=== PATIENT | female | born 1955 | race Caucasian/White ===

== ENCOUNTER 2022-07-10 13:19 | Outpatient (CLI) | payer MEDICARE, SELFPAY ==
--- NOTE | 2022-07-10 14:17 | ECG_ITS ---
Measurements Intervals [place] Rate: 78 P: 63 MA: 183 QRS: 42 QRSD: 94 T: 63 QT: 376 QTc: 431 Interpretive Statements BASELINE ARTIFACT/POOR ECG QUALITY SINUS RHYTHM POOR R-WAVE PROGRESSION ABNORMAL ECG WARNING: DATA QUALITY MAY AFFECT INTERPRETATION NO PREVIOUS ECG AVAILABLE FOR COMPARISON Electronically Signed On 07-10-2022 15:44:08 CDT by Harvinder Barreto M.D.
[2022-07-10 14:37] LABS: Hematocrit 40.5 % (37.0-47.0); Hemoglobin 13.5 g/dL (12.0-15.0); Mean Corpuscular HGB Conc 33.3 g/dl (32-36); Mean Corpuscular Hemoglobin 30.3 pg (26-34); Mean Corpuscular Volume 90.8 fl (80-100); Platelet Count Result 372 k/mm3 (150-375); Red Blood Count 4.46 M/mm3 (4.2-5.4); Red Cell Distribution Width 13.3 % (11.5-14.5); White Blood Count 7.8 K/mm3 (4.5-10.0)
[2022-07-10 14:45] LABS: Anion Gap 6 mmol/L (8-16); Blood Urea Nitrogen 16 mg/dL (7-17); Calcium 10.2 mg/dL (8.4-10.2); Carbon Dioxide 31 mmol/L (22-30); Chloride 105 mmol/L (98-107); Estimated Glomerular Filt Rate > 60; Glucose 99 mg/dL (65-110); Potassium 4.4 mmol/L (3.4-5.0); Sodium 142 mmol/L (137-145)
[2022-07-10 14:57] LABS: Prothrombin Time 12.8 Seconds (11.1-14.7)
[2022-07-10 14:58] LABS: Partial Thromboplastin Time 33.8 SECONDS (22.3-36.8)
== END 2022-07-10 13:20 | disposition home or self-care (01) ==
PROVIDERS: PCP Internal Medicine; Visit Provider Neurological Surgery
DX: M48.062 Spinal stenosis, lumbar region with neurogenic claudication (principal); Z01.818 Encounter for other preprocedural examination; Z79.1 Long term (current) use of non-steroidal anti-inflammatories (NSAID); R94.31 Abnormal electrocardiogram [ECG] [EKG]
CPT/HCPCS: 36415; 80048; 85027; 85610; 85730; 86850; 86900; 86901; 93005

== ENCOUNTER 2022-07-15 01:17 | Day surgery (SDC) | payer MEDICARE, SELFPAY ==
[2022-07-06 11:05] VITALS: BMI 23.1
--- NOTE | 2022-07-06 11:09 | PC.NURSE ---
Report to the Outpatient Waiting Room, entrance under the green pavilion located off [facility], at time 6:00 on date 07/15/22. Planned Procedure Time: 7:30. Time changes happen often and if your time is changed the preop area will call you the afternoon before. - You and your visitor will be asked to self-screen and do not enter if you have any COVID symptoms. - A mask is optional within the hospital at this time. Patients may have clear liquids (water, carbonated beverages, clear teas, apple juice) until 3 hours prior to surgery with a maximum of 20 ounces. - No food from midnight until time of surgery Take the following medications with a SIP of water the morning of surgery: ALPRAZOLAM IF NEEDED, ARIPIPRAZOLE, BUPROPION, CARVEDILOL, GABAPENTIN DO NOT STOP ANY OF YOUR OTHER PRESCRIPTION MEDICATIONS PRIOR TO SURGERY EXCEPT THE FOLLOWING Medications to discontinue per physician: VITAMINS/SUPPLEMENTS Date to take last dose: 07/11/22 Please no make-up, nail [place] citizen, hairspray, perfume, deodorant, or body powder the day of surgery. No jewelry (including any body piercings) or valuables the day of surgery, leave them at home. Please take a shower or bath the night before, or the morning of, surgery with an antibacterial soap. Wear comfortable, loose fitting clothing. - Jewelry must be removed prior to entering the operating room. Rings and piercings that are not removed may be cut off. - The hospital will not accept responsibility for valuables. - Please leave all valuables, including medications, at home the day of surgery. If you are going home after surgery, a licensed tower truck driver must drive you home. - NO public transportation without another adult if you receive anesthesia. - We recommend that an adult stay with you for 24 hours following discharge. - We also recommend that you do not drive, make important decision, drink alcoholic beverages, or take any drugs that were not prescribed by your health care provider for at least 24 hours after your discharge time. Follow any additional instructions given to you from your surgeon. If you or anyone in your household have experienced Covid symptoms in the past week, please notify your surgeon or the nurse liaison at the phone number below for possible testing. Telephone instructions given to PT - FREDERIC GILLESPIE and asked if any additional questions and then verbalized understanding. Patient advised to call surgeon office or pre surgery nurse liaison [phone] if any additional questions.
[2022-07-15] VITALS (16 sets, daily range): BP systolic 128–176; BP diastolic 60–78; PULSE 73–93; RESP 12–20; TEMP 36.1–37; O2SAT 92–100; BMI 23.2
--- NOTE | ~2022-07-15 | XR_ITS ---
EXAMINATION: XR fluoroscopy no charge DATE: 07/15/2022 10:03 INDICATION: Lumbar laminectomy TECHNIQUE: Single lateral fluoroscopic images of the lumbar spine was obtained during procedure perfo rmed by Dr. Tenorio. Radiologist was not present for the imaging or procedure. The amount of fluorosc opy time used during this procedure was 0.1 minutes. COMPARISON: None. FINDINGS: Tip of a metallic probe projects posterior to the L4 spinous process. There is moderate the visualize d lumbar spondylosis. IMPRESSION: 1. Fluoroscopy utilized during reported lumbar laminectomy. See procedure note for further detail. Reviewed, dictated and finalized at location A.
[2022-07-15] MEDS: LACTATED RINGERS 1,000 ML 30 ML IV CONT (06:30)
--- NOTE | 2022-07-15 06:41 | WPDANESEPPF ---
Anes - Initial Pre Proc Eval Procedure: Operation Date: 07/15/22 07:30 Proposed Procedures p L2-5 Lumbar Laminectomy - Batool Tenorio MD Date/Time: 07/15/22 06:41 Surgeon: Batool Tenorio MD Pre Op Diagnosis: lumbar stenosis with neurogenic claudication Patient Data Age: 67 Gender: F Height: 1.47 m Weight: 50.5 kg Allergies Allergy/AdvReac Type Severity Reaction Status Date / Time No Known Allergies Allergy Verified 07/15/22 06:07 Home Medications Medication Instructions Recorded Confirmed Type alendronate 70 mg tablet 70 mg PO WEEKLY 06/11/22 07/15/22 History alprazolam 0.25 mg tablet 0.25 mg PO BID 06/11/22 07/15/22 History amlodipine 10 mg-benazepril 20 mg 1 cap PO DAILY 06/11/22 07/15/22 History capsule aripiprazole 5 mg tablet 5 mg PO DAILY 06/11/22 07/15/22 History atorvastatin 20 mg tablet 20 mg PO DAILY 06/11/22 07/15/22 History bupropion HCl 300 mg 24 hr tablet, 300 mg PO QAM 06/11/22 07/15/22 History extended release carvedilol 25 mg tablet 25 mg PO Q12H 06/11/22 07/15/22 History gabapentin 600 mg tablet 600 mg PO TID 06/11/22 07/15/22 History potassium chloride 20 mEq 20 meq PO DAILY 06/11/22 07/15/22 History tablet,extended release calcium carbonate 600 mg-vitamin 1 tablet PO DAILY 07/06/22 07/15/22 History D3 5 mcg (200 unit) tablet Patient hx anesthesia problems: none Family hx anesthesia problems: none Results Review: All pre-operative results and documents have been reviewed as part of the pre-operative evaluation. [facility] Past Medical History Medical History (Updated 07/15/22 @ 06:41 by Ludin Barba MD) Anxiety HTN (hypertension) Hyperlipidemia Osteoporosis Surgical History Surgical History (Updated 07/15/22 @ 06:42 by Ludin Barba MD) H/O lymph node excision left axilla Family History Family History Father Alcoholism Heart disease Mother Hypertension Cerebrovascular accident Thyroid disorder Sibling Alcoholism Unknown Depression Anxiety Grandparent Hypertension Heart disease Cerebrovascular accident Grandparent Hypertension Heart disease Social History Social History Smoking packs per day: 0.5 Smoking cigarettes per day: 10.0 Years smoked: 30 Smoking pack-years: 15.00 Smoking status: Former smoker Tobacco type: cigarettes Smoking end date: 03/22/01 Alcohol intake: never Substance use: current Substance use type: marijuana Living arrangements: with family Spiritual care concerns: No Anes - Eval Final PreProcedure Day of Procedure 07/15/22 06:41 Patient weight: normal Heart: regular rate and rhythm Lungs: clear to auscultation Airway: Mallampati scale class II Neurological: alert and oriented Last oral intake: >/= 8 hours ASA classification: III Emergent: no Anesthetic plan: proceed Anesthesia type and monitoring: general ETT and standard monitoring Results Review: All pre-operative results and documents have been reviewed as part of the pre-operative evaluation. Informed Consent: The patient's anesthetic plan and its attendant risks and benefits were discussed with the patient/family/POA. Questions were solicited and answers provided to the satisfaction of the patient/family/POA.
--- NOTE | 2022-07-15 07:15 | WPDHPUPDATE1 ---
History and Physical Update Update Date/Time: 07/15/22 07:15 History and Physical has been reviewed, including an updated exam of the patient. There are NO changes in the patient's condition. Risks, benefits, and alternatives have been discussed and questions answered. Patient agrees to proceed with procedure.
[2022-07-15] MEDS: ceFAZolin 2 GM/D5W 50 ML 2 GM/50 ML BAG IVPB (07:30)
[2022-07-15] MEDS: BUPIVACAINE/EPINEPHRINE 0.5% 50 ML VIAL INFILTRATE (08:07)
[2022-07-15] MEDS: BACITRACIN OINTMENT 15 GM TUBE 1 APPLIC TOPICAL (09:05)
--- NOTE | 2022-07-15 10:07 | W.PM.PROC2 ---
Procedure Note - Detailed Date of Procedure 07/15/22 Pre-op Diagnosis lumbar stenosis with neurogenic claudication Post-op Diagnosis Same Procedure Performed 1. Lumbar laminectomies at L2, L3, and L4 2. Use of C-arm for fluoroscopy Surgeon Batool Tenorio MD Vibrating Screen Operator KESHAV Gonzalez Anesthesia General and Local Indications Ms. Serna is a 67-year-old female with history of back pain and bilateral neurogenic claudication, worse on the right, with paresthesias in the feet and urinary incontinence. Imaging revealed significant central lumbar stenosis at L3-4 and L4-5 with moderate to severe stenosis at L2-3. The patient has failed conservative therapies, and surgical treatment was offered. The risks, benefits, and alternatives as well as reasonable expected outcomes were explained to the patient, and the patient provided written informed consent to proceed. Risks including bleeding, infection, nerve damage, CSF leak, weakness, meningitis, damage to surrounding structures, and failure to alleviate symptoms were discussed. Description of Procedure The patient was brought to the operating room, and general anesthesia was induced. The patient was placed prone on the Brayan frame, and all pressure points were padded. Compression devices were placed on the patient's calves. The C-arm was brought onto the field to localize the appropriate disc space and assist with incisional planning. The area was prepped and draped in usual sterile fashion. A time out was conducted, and pre-operative antibiotics were administered. 30cc of 0.5% marcaine with epinephrine was injected into the planned incision. A midline skin incision was made with a 10-blade scalpel, and dissection was carried down with the monopolar cautery to open the fascia. Once the spinous processes were located, a subperiosteal dissection was performed to expose the laminae bilaterally. A self-retaining retractor was placed. The C-arm was brought in to confirm the correct level. The spinous processes were removed with a Leksell. The high-speed drill was used to thin the lamina bilaterally to the ligamentum flavum. A Kerrison rongeur was used to disconnect the underlying soft tissue. Remaining lamina was removed with a Leksell and Kerrison rongeurs, and the ligamentum flavum was opened with the Kerrison. The Kerrison was then passed into the foraminae to ensure they were open. A Woodsen was used to verify adequate decompression at the cranial and caudal aspects of the decompression. A couple areas of thinned dura were noted without CSF leak. One region was at the inferior aspect of the exposure, and the second area was on the right side around L3-4. These regions were covered with two 1x1cm pieces of duragen followed by Duraseal. Hemostasis was ensured with the bipolar and Surgiflo, and the area was copiously irrigated. No evidence of CSF leak was noted. The muscle was loosely approximated with 0-Vicryl. The fascia was closed with 0-Vicryl in an interrupted fashion. The soft tissue was again copiously irrigated. The dermis was closed with 2-0 and 3-0 interrupted Vicryl. The skin was closed with 3-0 simple running nylon. Sterile dressings were applied. The patient was returned supine on the stretcher, extubated, and transferred to PACU without incident. Billing codes: 03690, [id number] Implants Two 1x1cm pieces of Duragen Estimated Blood Loss -50.0 Drains No Packing No Pathology None sent Complications None Condition Stable Disposition PACU [facility] Billing Surgery - Charge Forward: Surgery Billing
[2022-07-15] MEDS: fentaNYL CITRATE INJ (*CRX) 100 MCG/2 ML VIAL 25 MCG IV PUSH ×4 (10:40→11:35)
--- NOTE | 2022-07-15 11:49 | ADMGEN ---
This patient, Dorcas Serna, was admitted to Medical Room 348-01. Patient/family oriented to hospital policies and general routines including ID bracelet, bed and alarms, visiting hours, pain management, procedures, bathroom and other care routines, personal items, smoking policy, room service/diet, and visiting hours. Information on how to activate the Rapid Response Team has been discussed. Patient/Family are encouraged to report perceived risks to care and to ask questions if they do not understand what they are told or what they should do.
[2022-07-15] MEDS: ceFAZolin 1 GM/NS 50 ML 1 GM/50 ML BAG IVPB ×2 (14:06→22:00)
[2022-07-15] MEDS: GABAPENTIN 300 MG CAPSULE 600 MG PO ×2 (14:08→17:43)
[2022-07-15] MEDS: oxyCODONE HCL (*CRX) 5 MG TAB IR PO (14:11)
[2022-07-15] MEDS: oxyCODONE HCL (*CRX) 5 MG TAB IR 10 MG PO ×2 (15:32→21:29)
--- NOTE | 2022-07-15 16:19 | PCPTNOTE ---
patient has bedrest orders and no PT orders
[2022-07-15] MEDS: ALPRAZolam (*CRX) 0.25 MG TABLET PO (17:43)
[2022-07-15] MEDS: ACETAMINOPHEN 500 MG TABLET 1000 MG PO (17:44)
[2022-07-15] MEDS: carvediloL 25 MG TABLET PO (21:27)
[2022-07-15] MEDS: DOCUSATE SODIUM 100 MG CAPSULE PO (21:29)
[2022-07-16] MEDS: ACETAMINOPHEN 500 MG TABLET 1000 MG PO ×5 (00:15→23:36)
[2022-07-16 00:55] VITALS: BP 129/76; PULSE 81; RESP 16; TEMP 36.8; O2SAT 98
[2022-07-16 04:55] VITALS: BP 128/74; PULSE 80; RESP 20; TEMP 36.8; O2SAT 98
[2022-07-16 05:47] LABS: Potassium 3.1 mmol/L (3.4-5.0)
[2022-07-16 06:00] VITALS: BP 128/74; PULSE 76; RESP 18; TEMP 36.7; O2SAT 20
[2022-07-16] MEDS: ceFAZolin 1 GM/NS 50 ML 1 GM/50 ML BAG IVPB ×3 (06:05→20:20)
--- NOTE | 2022-07-16 08:03 | WPDANESPN ---
Anes - Prog Note Post-Op Date/Time: 07/16/22 08:03 Cardiovascular status: normal Respiratory status: normal Airway patency: baseline Mental status: baseline Post-Op hydration status: normal Vital Signs: Last Vital Signs Temp 36.7 C 07/16/22 06:00 Pulse 76 07/16/22 06:00 Resp 18 07/16/22 06:00 BP 128/74 07/16/22 06:00 Pulse Ox 20 L 07/16/22 06:00 O2 Del Method Room Air 07/15/22 14:45 O2 Flow Rate 6 07/15/22 10:10 Pain Score (VAS): 2/10 I/O: Intake & Output 07/15/22 07/16/22 07/16/22 23:59 07:59 15:59 Intake Total 530 Output Total 550 Balance 530 -550 Laboratory Tests 07/16/22 05:10 07/16/22 05:10 Potassium 3.1 L Post-procedural complaints: none Patient Feedback: Patient satisfied with anesthetic care.
[2022-07-16] MEDS: ATORVASTATIN 20 MG TABLET PO (09:35)
[2022-07-16] MEDS: DOCUSATE SODIUM 100 MG CAPSULE PO ×2 (09:35→20:19)
[2022-07-16 09:36] VITALS: PULSE 82
[2022-07-16] MEDS: carvediloL 25 MG TABLET PO ×2 (09:36→20:20)
[2022-07-16] MEDS: GABAPENTIN 300 MG CAPSULE 600 MG PO ×3 (09:36→17:47)
[2022-07-16] MEDS: lisinopriL 20 MG TABLET PO (09:36)
[2022-07-16] MEDS: POTASSIUM CHLORIDE 20 MEQ TABLET.ER PO (09:36)
[2022-07-16] MEDS: buPROPion HCL XL (24 HR) 150 MG TABCR 300 MG PO (09:36)
[2022-07-16] MEDS: ARIPiprazole 5 MG TABLET PO (09:37)
[2022-07-16] MEDS: amLODIPine BESYLATE 5 MG TABLET 10 MG PO (09:37)
[2022-07-16] MEDS: ALPRAZolam (*CRX) 0.25 MG TABLET PO ×2 (09:37→17:47)
--- NOTE | 2022-07-16 12:08 | WPDNEUROSGPN ---
Progress Note: A&P Assessment and Plan (1) Status post lumbar laminectomy: Code(s): Z98.890 - Other specified postprocedural states Status: Acute Plan Ms. Serna is a 67-year-old female with history of lumbar stenosis with neurogenic claudication who underwent L2, L3, and L4 laminectomies on 07/15. She is doing very well today with resolved left leg pain. We will advance her activity and have her ambulate in the halls. Physical therapy was ordered as well. I will check in with her this evening; if she is feeling well with ambulating, she could potentially discharge home this evening. Subjective Date/time seen: 07/16/22 12:08 Interval history: Ms. Serna is doing very well with resolved left leg pain. Back pain is controlled with medications. Eating and voiding well. No other complaints. Review of Systems Review of Systems: All systems reviewed & are unremarkable except as noted in HPI and below Exam Narrative: AOx4 Full strength in lower extremities Sensation intact to light touch Dressing dry Objective Data Vital Signs Vital Signs: Vital Signs - 24 hr 07/15/22 12:20 07/15/22 12:55 07/15/22 14:00 Temperature 97.9 F 97.5 F L 97.0 F L Pulse Rate 86 82 92 Respiratory Rate 18 16 18 Blood Pressure 151/74 H 150/73 H 176/72 H Pulse Oximetry 92 96 95 Oxygen Delivery 07/15/22 14:45 07/15/22 16:55 07/15/22 21:27 Temperature 97.7 F Pulse Rate 88 80 Respiratory Rate 18 Blood Pressure 151/76 H Pulse Oximetry 98 Oxygen Delivery Room Air 07/15/22 20:55 07/15/22 22:00 07/16/22 00:55 Temperature 98.2 F 98.2 F 98.2 F Pulse Rate 88 88 81 Respiratory Rate 20 20 16 Blood Pressure 130/77 130/77 129/76 Pulse Oximetry 98 98 98 Oxygen Delivery 07/16/22 04:55 07/16/22 06:00 07/16/22 09:36 Temperature 98.2 F 98.0 F Pulse Rate 80 76 82 Respiratory Rate 20 18 Blood Pressure 128/74 128/74 Pulse Oximetry 98 20 L Oxygen Delivery Intake/Output Intake/Output: Intake & Output 07/13/22 07/14/22 07/15/22 07/16/22 23:59 23:59 23:59 23:59 Intake Total 730 360 Output Total 350 550 Balance 380 -190 Meds/Results Medications: Active Medications Generic Name Dose Route Start Last Admin Trade Name Eber PRN Reason Stop Dose Admin Acetaminophen 1,000 mg 07/15/22 12:00 07/16/22 06:05 Acetaminophen 500 Mg Tablet PO 1,000 mg Q6H DAVID Administration Al Hydrox/Mg Hydrox/Simethicone 20 ml 07/15/22 09:55 Mag Hydrox/Al Hydrox/Simeth 30 Ml Udc PO Q4H PRN Indigestion/Heartburn Alendronate Sodium 70 mg 07/20/22 06:30 Alendronate Sodium 70 Mg Tablet PO Mo@0630 DAVID Alprazolam 0.25 mg 07/15/22 17:00 07/16/22 09:37 Alprazolam (*Crx) 0.25 Mg Tablet PO 0.25 mg BID DAVID Administration Amlodipine Besylate 10 mg 07/16/22 09:00 07/16/22 09:37 Amlodipine Besylate 5 Mg Tablet PO 08/15/22 08:59 10 mg DAILY DAVID Administration Aripiprazole 5 mg 07/16/22 09:00 07/16/22 09:37 Aripiprazole 5 Mg Tablet PO 5 mg DAILY DAVID Administration Atorvastatin Calcium 20 mg 07/16/22 09:00 07/16/22 09:35 Atorvastatin 20 Mg Tablet PO 20 mg DAILY DAVID Administration Bisacodyl 10 mg 07/15/22 09:55 Bisacodyl 10 Mg Suppository RECTAL DAILY PRN Constipation Bupropion HCl 300 mg 07/16/22 09:00 07/16/22 09:36 Bupropion Hcl Xl (24 Hr) 150 Mg Tabcr PO 300 mg QAM DAVID Administration Calcium Carbonate 500 mg 07/16/22 09:00 07/16/22 09:37 Calcium/Vitamin D 500 Mg Tablet PO 08/15/22 08:59 500 mg DAILY DAVID Administration Carvedilol 25 mg 07/15/22 21:00 07/16/22 09:36 Carvedilol 25 Mg Tablet PO 25 mg Q12H DAVID Administration Cyclobenzaprine HCl 10 mg 07/15/22 09:56 Cyclobenzaprine Hcl 10 Mg Tablet PO TID PRN Muscle Spasms Docusate Sodium 100 mg 07/15/22 21:00 07/16/22 09:35 Docusate Sodium 100 Mg Capsule PO 100 mg Q12HR DAVDI Administration Fentanyl Citrate 25
[2022-07-16 13:52] VITALS: BP 120/68; PULSE 74; RESP 17; TEMP 37.1; O2SAT 95
[2022-07-16] MEDS: oxyCODONE HCL (*CRX) 5 MG TAB IR 10 MG PO (15:54)
[2022-07-16 20:20] VITALS: BP 121/81; PULSE 78; PULSE 80; RESP 16; TEMP 36.8; O2SAT 94
[2022-07-17] MEDS: oxyCODONE HCL (*CRX) 5 MG TAB IR 10 MG PO ×2 (01:11→08:40)
[2022-07-17 05:39] VITALS: BP 131/49; PULSE 84; RESP 16; TEMP 37.2; O2SAT 95
[2022-07-17] MEDS: ACETAMINOPHEN 500 MG TABLET 1000 MG PO (05:42)
[2022-07-17] MEDS: ceFAZolin 1 GM/NS 50 ML 1 GM/50 ML BAG IVPB (05:43)
[2022-07-17] MEDS: lisinopriL 20 MG TABLET PO (08:28)
[2022-07-17] MEDS: ALPRAZolam (*CRX) 0.25 MG TABLET PO (08:28)
[2022-07-17] MEDS: GABAPENTIN 300 MG CAPSULE 600 MG PO (08:28)
[2022-07-17] MEDS: ATORVASTATIN 20 MG TABLET PO (08:28)
[2022-07-17] MEDS: POTASSIUM CHLORIDE 20 MEQ TABLET.ER PO (08:28)
[2022-07-17] MEDS: buPROPion HCL XL (24 HR) 150 MG TABCR 300 MG PO (08:28)
[2022-07-17 08:29] VITALS: PULSE 81
[2022-07-17] MEDS: carvediloL 25 MG TABLET PO (08:29)
[2022-07-17] MEDS: DOCUSATE SODIUM 100 MG CAPSULE PO (08:29)
[2022-07-17] MEDS: amLODIPine BESYLATE 5 MG TABLET 10 MG PO (08:29)
[2022-07-17] MEDS: ARIPiprazole 5 MG TABLET PO (08:30)
--- NOTE | 2022-07-17 09:53 | PM.DS ---
DS: Admitting Diagnosis Discharge Date July 17, 2022 Admitting Diagnosis Lumbar stenosis with neurogenic claudicaiton DS: Discharge Diagnosis Discharge Diagnosis (1) Lumbar stenosis with neurogenic claudication: Code(s): M48.062 - Spinal stenosis, lumbar region with neurogenic claudication Status: Acute (2) Status post lumbar laminectomy: Code(s): Z98.890 - Other specified postprocedural states Status: Acute DS: Summary Hospital Course Hospital Course: Ms. Serna is a 67-year-old female with history of significant back and bilateral leg pain. Her back and right leg pain improved with therapy and MIREILLE, but her left leg pain has remained debilitating. She presented for surgery on July 15; please see the operative note for more details. She was transferred to the floor after surgery on flat bedrest due to concern for thin dura during surgery with potential for CSF leak, so bedrest precautions were taken for 24 hours. She mobilized with therapy on 07/17 who cleared her for discharge home. Her pain was controlled, and she was tolerating oral intake. She was determined ready for discharge home. Status at Discharge Functional status at discharge: independent ambulation Time Spent with Patient Time attestation: Total time spent providing and/or coordinating discharge services: Exam Narrative: AOx4 full strength in lower extremities Sensation intact to light touch Dressing c/d/i with sutures intact Discharge Plan Discharge Patient Disposition: Home, Self-Care Discharge Instructions: Discharge Instructions Procedure: Lumbar laminectomy Your doctor has partially removed one or more laminae from your back (lumbar spine), to remove pressure from the nerve roots. Here are some instructions to follow upon discharge from the hospital to help in your recovery. Wound Care: You may shower and get your incision wet starting on post-operative day 2. You may use soap and water to clean your incision. Lightly dab the incision dry. Do not apply any ointments, creams, or lotions to the incision. Do not take baths or sit in a hot tub or pool until approved by your doctor at your follow-up appointment. If you have stitches in place, these will be removed at your first post-operative appointment. Activity: Until released by your doctor, you should not return to work. You should rest at home and let your body heal. Taking short walks is encouraged, but avoid strenuous exercise. Do not jog, run, bicycle, lift weights, or participate in any other exercises unless specifically allowed by your doctor. Most importantly, avoid lifting objects heavier than about 10 lbs (or carton of milk) as this places a strain on your back. Avoid twisting and bending motions. Avoid prolonged sitting. Where possible, avoid household activities that involve lifting and/or bending such as laundry, grocery shopping, and childcare. Try to arrange for help from friends and family for these activities while your back heals. You should not drive for a few days and must be off pain medications prior to driving. DO NOT SMOKE TOBACCO. Smoking has been proven to interfere with the normal healing of the bones in your back. Smoking will dramatically reduce the success rate of your surgery. Your doctor can prescribe a patch to help you stop smoking if you would like. Diet: You can return to your usual diet, unless instructed otherwise by your doctor. Medications: You should resume taking all of your normal medications, unless instructed otherwise by your doctor. If you have questions about your normal medications (those prescribed for high blood pressure, for example), call your family doctor or benzol still operator. You will be given a prescription for pain medications and possibly a laxative, as pain medications can cause constipation. Take the pain medicines as instructed. Try Tylenol first for pain to see if this will adequately r
== END 2022-07-17 11:25 | disposition home or self-care (01) ==
LOC: ANHSURGERY 10:07 → ANH3MED 11:47
PROVIDERS: PCP Internal Medicine; Visit Provider Neurological Surgery
PROC: (CPT 63005; principal; 2022-07-15 07:30)
DX: M48.062 Spinal stenosis, lumbar region with neurogenic claudication (principal); I10 Essential (primary) hypertension; E78.5 Hyperlipidemia, unspecified; M81.0 Age-related osteoporosis without current pathological fracture; F41.9 Anxiety disorder, unspecified; Z87.891 Personal history of nicotine dependence; F12.90 Cannabis use, unspecified, uncomplicated
CPT/HCPCS: 63047; 63048 ×2; 36415; 80048; 84132; 85027; 85610; 85730; 86850; 86900; 86901; 93005; 97161; 99199; A9270; J0690; J1100; J1170; J2250; J2370; J2405; J2704; J2710; J3010; J7120

== ENCOUNTER 2022-11-12 15:25 | Outpatient (CLI) | payer MEDICARE, SELFPAY ==
--- NOTE | ~2022-11-12 | XR_ITS ---
XR hip RT min 2V DATE: 11/12/2022 15:48 INDICATION: Sacroiliac pain, right hip pain. TECHNIQUE: AP and lateral views COMPARISON: None FINDINGS: Minimally included L5-S1 area reveals evidence of severe L5-S1 degenerative disc disease. The pubic symphysis and right sacroiliac joint are intact. No fracture, dislocation, avascular necrosis or bone destruction of the right hip is detected. Right hip joint space appears relatively well preserved. IMPRESSION: Severe degenerative disc disease at L5-S1 No significant abnormality of the right hip or right sacroiliac joint Reviewed, dictated and finalized at location A.
--- NOTE | ~2022-11-12 | XR_ITS ---
EXAMINATION: XR lumbar spine min 4V DATE: 11/12/2022 15:48 INDICATION: Sacroiliitis TECHNIQUE: Anteroposterior and lateral in neutral, flexion and extension and coned-down lateral lumbo sacral views of the lumbar spine were obtained. COMPARISON: None. FINDINGS: L2-L4 laminectomies. 35 degrees dextroscoliosis measured between T12 and L4. This complicates assessm ent on the lateral projection. No definitive spondylolisthesis with mild decrease in range of motion of the lumbar spine with flexion and extension. Vertebral body heights are normal. Severe left-sided disc height loss at L2-L3 and L3-L4, severe right-sided disc height loss at L4-L5, moderate disc heig ht loss at T12-L1 and L5-S1 and moderate left-sided disc height loss at L1-L2. Moderate to severe fac et osteoarthritis on the left side of the mid lumbar spine and right-sided the lower lumbar spine. Mi ld bilateral sacroiliac osteoarthritis with no erosions to suggest inflammatory sacroiliitis. Visuali zed portions of the lung bases are clear. IMPRESSION: 1. 35 degree lumbar dextroscoliosis with severe spondylosis. 2. L2-L4 laminectomies. Reviewed, dictated and finalized at location A.
== END 2022-11-12 15:26 | disposition home or self-care (01) ==
PROVIDERS: PCP Internal Medicine; Visit Provider Neurological Surgery
DX: M46.1 Sacroiliitis, not elsewhere classified (principal); Z98.890 Other specified postprocedural states; M41.86 Other forms of scoliosis, lumbar region; Z98.1 Arthrodesis status; M51.37 Other intervertebral disc degeneration, lumbosacral region; M43.06 Spondylolysis, lumbar region
CPT/HCPCS: 72110; 73502

== ENCOUNTER 2023-06-28 11:13 | Outpatient (CLI) | payer MEDICARE, SELFPAY ==
[2023-06-28 12:00] LABS: Hematocrit 42.9 % (37.0-47.0); Hemoglobin 13.7 g/dL (12.0-15.0); Mean Corpuscular HGB Conc 31.9 g/dl (32-36); Mean Corpuscular Hemoglobin 30.7 pg (26-34); Mean Corpuscular Volume 96.2 fl (80-100); Mean Platelet Volume 9.7 fl (7.4-10.4); Platelet Count Result 414 k/mm3 (150-375); Red Blood Count 4.46 M/mm3 (4.2-5.4); Red Cell Distribution Width 14.3 % (11.5-14.5); White Blood Count 11.1 K/mm3 (4.5-10.0)
[2023-06-28 12:08] LABS: Anion Gap 6 mmol/L (4-12); Blood Urea Nitrogen 16 mg/dL (7-17); Calcium 10.3 mg/dL (8.4-10.2); Carbon Dioxide 30 mmol/L (22-30); Chloride 106 mmol/L (98-107); Estimated Glomerular Filt Rate > 60; Glucose 109 mg/dL (65-110); Potassium 4.3 mmol/L (3.4-5.0); Sodium 142 mmol/L (137-145)
[2023-06-28 12:10] LABS: INR 0.9; Prothrombin Time 12.8 Seconds (11.1-14.7)
[2023-06-28 12:11] LABS: Partial Thromboplastin Time 34.2 Seconds (22.3-36.8)
[2023-06-28 12:25] LABS: Appearance Urine Clear (Clear); Bacteria Urine None Seen /hpf; Bilirubin Urine Negative (Negative); Blood Urine Negative (Negative); Color Urine Yellow (Yellow); Glucose Urine UA Negative (Negative); Ketones Urine Negative (Negative); Leukocyte Esterase Ur 2+ LEU/UL (Negative); Need Manual Microscopic Reviewed; Nitrate Urine Negative (Negative); Non Pathogenic Casts 0-2; Protein Urine Negative (Negative); RBC Urine 0-2 /hpf (0-2); Specific Grav Ur 1.006 (1.001-1.035); Squamous Epithelial Cell Urine None Seen /hpf (Few); Urobilinogen Urine 0.2 mg/dL (<2.0); WBC Urine 0-5 /hpf (0-3); pH Urine 7.5 (5.0-9.0)
[2023-06-28 12:29] LABS: Add Urine Microscopic? YES
== END 2023-06-28 11:14 | disposition home or self-care (01) ==
LOC: ANHSURGERY 11:17
PROVIDERS: PCP Internal Medicine; Visit Provider Neurological Surgery
DX: Z01.818 Encounter for other preprocedural examination (principal); M21.371 Foot drop, right foot
CPT/HCPCS: 36415; 80048; 81001; 85027; 85610; 85730

== ENCOUNTER 2023-06-30 00:18 | Day surgery (SDC) | payer MEDICARE, SELFPAY ==
[2023-06-25 11:31] VITALS: BMI 22.6
--- NOTE | 2023-06-25 11:44 | PC.NURSE ---
PRE-OP INSTRUCTIONS, PLEASE READ CAREFULLY Report to the Outpatient Waiting Room, entrance under the green pavilion located off [facility], at time _0900_ on date _06/30/23_. Planned Procedure Time: _1100_. Time changes happen often and if your time is changed the preop area will call you the afternoon before. - You and your visitor will be asked to self-screen and do not enter if you have any COVID symptoms. - A mask is optional within the hospital at this time. Patients may have clear liquids (water, carbonated beverages, clear teas, apple juice) until 3 hours prior to surgery (0800 AM) with a maximum of 20 ounces. - No food from midnight until time of surgery Take the following medications with a SIP of water the morning of surgery: _ALPRAZOLAM, BUPROPION, CARVEDILOL, GABAPENTIN, & TYLENOL IF NEEDED_ DO NOT STOP ANY OF YOUR OTHER PRESCRIPTION MEDICATIONS PRIOR TO SURGERY ?EXCEPT THE FOLLOWING Medications to discontinue per physician ___NONE____, Date to take last dose Please no make-up, nail wolof, hairspray, perfume, deodorant, or body powder the day of surgery. No jewelry (including any body piercings) or valuables the day of surgery, leave them at home. Please take a shower or bath the night before, or the morning of, surgery with an antibacterial soap. Wear comfortable, loose fitting clothing. Children are encouraged to wear pajamas. - Jewelry must be removed prior to entering the operating room. Rings and piercings that are not removed may be cut off. - The hospital will not accept responsibility for valuables. - Please leave all valuables, including medications, at home the day of surgery. If you are going home after surgery, a licensed lumber driver must drive you home. - NO public transportation without another adult if you receive anesthesia. - We recommend that an adult stay with you for 24 hours following discharge. - We also recommend that you do not drive, make important decision, drink alcoholic beverages, or take any drugs that were not prescribed by your health care provider for at least 24 hours after your discharge time. Follow any additional instructions given to you from your surgeon. If you or anyone in your household have experienced Covid symptoms in the past week, please notify your surgeon or the nurse liaison at the phone number below for possible testing. Telephone instructions given to _PATIENT_and asked if any additional questions and then verbalized understanding. Patient advised to call surgeon office or pre surgery nurse liaison [phone] if any additional questions.
[2023-06-30] VITALS (12 sets, daily range): BP systolic 125–160; BP diastolic 56–73; PULSE 78–97; RESP 12–20; TEMP 35.6–37; O2SAT 92–100
--- NOTE | ~2023-06-30 | XR_ITS ---
EXAMINATION: XR fluoroscopy no charge DATE: 06/30/2023 14:06 INDICATION: Lumbar laminectomy. TECHNIQUE: 2 intraoperative fluoroscopic views of lumbar spine were obtained. I was not present. Fluo roscopy time was 3 seconds. COMPARISON: Lumbar spine radiographs 11/12/2022 FINDINGS: There is severe lumbar spondylosis. Instruments overlie the posterior elements of lower lum bar spine. IMPRESSION: 1. Severe lumbar spondylosis. Reviewed, dictated and finalized at location A.
[2023-06-30] MEDS: LACTATED RINGERS 1,000 ML 30 ML IV CONT ×2 (09:45→13:50)
--- NOTE | 2023-06-30 10:19 | WPDHPUPDATE1 ---
History and Physical Update Update Date/Time: 06/30/23 10:19 History and Physical has been reviewed, including an updated exam of the patient. There are NO changes in the patient's condition. Risks, benefits, and alternatives have been discussed and questions answered. Patient agrees to proceed with procedure.
--- NOTE | 2023-06-30 10:19 | PM.IMHP ---
H&P: HPI History of Present Illness Date/Time: 06/30/23 10:19 Chief Complaint: Right leg pain and foot drop Narrative: Ms. Serna is a? 68-year-old female who underwent L2, L3, and L4 laminectomies in June 2022 for neurogenic claudication who was doing very well from surgery until late October when she developed some right hip pain that eventually progressed into radicular leg pain and later into a right foot drop.? She had an epidural steroid injection at [facility] at L5-S1 which significantly improved her pain and weakness.? Unfortunately, her symptoms have recurred.? She had recent epidural steroid injection L4-5 about 10 days ago which has helped her radicular pain quite a bit, but her footdrop remains fairly persistent, and is now causing her to fall with walking.? She also feels pain in her leg starting to return.? She denies any left-sided symptoms, and she denies any back pain.? She notably was just diagnosed with osteoporosis on her most recent DEXA scan.? She was started on Evenity for this and had her first injection 10 days ago. Review of Systems Review of Systems: All systems reviewed & are unremarkable except as noted in HPI and below PMFSH Past Medical History Medical History Anxiety HTN (hypertension) Hyperlipidemia Osteoporosis Surgical History Surgical History H/O lymph node excision left axilla Family History Family History Father Alcoholism Heart disease Mother Hypertension Cerebrovascular accident Thyroid disorder Sibling Alcoholism Unknown Depression Anxiety Grandparent Hypertension Heart disease Cerebrovascular accident Grandparent Hypertension Heart disease Social History Social History Smoking packs per day: 0.5 Smoking cigarettes per day: 10.0 Years smoked: 30 Smoking pack-years: 15.00 Smoking status: Former smoker Tobacco type: cigarettes Second hand tobacco smoke exposure: No Smoking end date: 03/22/01 Alcohol intake: current Substance use: current Substance use type: marijuana Other substance usage details: NIGHTLY FOR PAIN/SLEEP/RECREATION Last use: 06/24/23 Do You Feel Safe in your Home?: Yes Lack of Transportation: No Lack of Food: Never True Current Housing: I Have Housing Concerned About Future Housing: No Difficulty Paying Gas/Electric Bills: No Difficulty Paying for Meds: No Currently Unemployed: No Education: High School Diploma/GED Difficulty w/ Childcare or Family Care: No Living arrangements: with family Spiritual care concerns: No Meds Home Medications and Allergies Home Medications Medication Instructions Recorded Confirmed Type alprazolam 0.25 mg tablet 0.25 mg PO BID 06/11/22 06/30/23 History aripiprazole 5 mg tablet 5 mg PO DAILY 06/11/22 06/30/23 History atorvastatin 20 mg tablet 20 mg PO DAILY 06/11/22 06/30/23 History bupropion HCl 300 mg 24 hr tablet, 300 mg PO QAM 06/11/22 06/30/23 History extended release carvedilol 25 mg tablet 25 mg PO Q12H 06/11/22 06/30/23 History potassium chloride 20 mEq 20 meq PO DAILY 06/11/22 06/30/23 History tablet,extended release calcium carbonate 600 mg-vitamin 1 tablet PO DAILY 07/06/22 06/30/23 History D3 5 mcg (200 unit) tablet gabapentin 300 mg capsule 600 mg PO TID Pain #180 caps 02/26/23 06/30/23 Rx acetaminophen 500 mg capsule 500 mg PO Q6H PRN Pain 03/25/23 06/30/23 History amlodipine 10 mg-benazepril 40 mg 1 cap DAILY 06/25/23 06/30/23 History capsule romosozumab-aqqg 210 mg/2.34 210 mg subcut MONTHLY 06/25/23 06/30/23 History mL(105 mg/1.17 mL x2)subcutaneous syringe (Evenity) Allergies Allergy/AdvReac Type Severity Reaction Status Date / Time topiramate [From Topamax] AdvReac Mild Blurred Verified
--- NOTE | 2023-06-30 10:34 | WPDANESEPPF ---
Anes - Initial Pre Proc Eval Procedure: Operation Date: 06/30/23 11:00 Proposed Procedures p Revision L4-L5, Laminectomy Right Far Lateral L4- L5 Decompression Resection of Synovial Cyst - Batool Tenorio MD Date/Time: 06/30/23 10:34 Surgeon: Batool Tenorio MD Pre Op Diagnosis: right lumbar radiculopathy, rt, foot drop, Patient Data Age: 68 Gender: F Height: 1.47 m Weight: 49.4 kg Last Vital Signs Temp 98.4 F 06/30/23 08:58 Pulse 78 06/30/23 08:58 Resp 20 06/30/23 08:58 BP 160/68 H 06/30/23 08:58 Pulse Ox 96 06/30/23 08:58 O2 Del Method Room Air 06/30/23 08:58 Allergies Allergy/AdvReac Type Severity Reaction Status Date / Time topiramate [From Topamax] AdvReac Mild Blurred Verified 06/30/23 08:58 vision [id number] Antimigraine AdvReac Mild Hot flashes Verified 06/30/23 08:58 Agents Home Medications Medication Instructions Recorded Confirmed Type alprazolam 0.25 mg tablet 0.25 mg PO BID 06/11/22 06/30/23 History aripiprazole 5 mg tablet 5 mg PO DAILY 06/11/22 06/30/23 History atorvastatin 20 mg tablet 20 mg PO DAILY 06/11/22 06/30/23 History bupropion HCl 300 mg 24 hr tablet, 300 mg PO QAM 06/11/22 06/30/23 History extended release carvedilol 25 mg tablet 25 mg PO Q12H 06/11/22 06/30/23 History potassium chloride 20 mEq 20 meq PO DAILY 06/11/22 06/30/23 History tablet,extended release calcium carbonate 600 mg-vitamin 1 tablet PO DAILY 07/06/22 06/30/23 History D3 5 mcg (200 unit) tablet gabapentin 300 mg capsule 600 mg PO TID Pain #180 caps 02/26/23 06/30/23 Rx acetaminophen 500 mg capsule 500 mg PO Q6H PRN Pain 03/25/23 06/30/23 History amlodipine 10 mg-benazepril 40 mg 1 cap DAILY 06/25/23 06/30/23 History capsule romosozumab-aqqg 210 mg/2.34 210 mg subcut MONTHLY 06/25/23 06/30/23 History mL(105 mg/1.17 mL x2)subcutaneous syringe (Evenity) Patient hx anesthesia problems: none Family hx anesthesia problems: none Results Review: All pre-operative results and documents have been reviewed as part of the pre-operative evaluation. PMFSH Past Medical History Medical History Anxiety HTN (hypertension) Hyperlipidemia Osteoporosis Surgical History Surgical History H/O lymph node excision left axilla Family History Family History Father Alcoholism Heart disease Mother Hypertension Cerebrovascular accident Thyroid disorder Sibling Alcoholism Unknown Depression Anxiety Grandparent Hypertension Heart disease Cerebrovascular accident Grandparent Hypertension Heart disease Social History Social History Smoking packs per day: 0.5 Smoking cigarettes per day: 10.0 Years smoked: 30 Smoking pack-years: 15.00 Smoking status: Former smoker Tobacco type: cigarettes Second hand tobacco smoke exposure: No Smoking end date: 03/22/01 Alcohol intake: current Substance use: current Substance use type: marijuana Other substance usage details: NIGHTLY FOR PAIN/SLEEP/RECREATION Last use: 06/24/23 Do You Feel Safe in your Home?: Yes Lack of Transportation: No Lack of Food: Never True Current Housing: I Have Housing Concerned About Future Housing: No Difficulty Paying Gas/Electric Bills: No Difficulty Paying for Meds: No Currently Unemployed: No Education: High School Diploma/GED Difficulty w/ Childcare or Family Care: No Living arrangements: with family Spiritual care concerns: No Anes - Eval Final PreProcedure Day of Procedure 06/30/23 10:34 Patient weight: normal Heart: regular rate and rhythm Lungs: clear to auscultation Airway: Mallampati scale class II Neurological: alert and oriented Last oral intake: >/= 8 hours ASA classificati
[2023-06-30] MEDS: ceFAZolin 2 GM/D5W 50 ML 2 GM/50 ML BAG IVPB (11:04)
[2023-06-30] MEDS: BUPIVACAINE/EPINEPHRINE 0.5% 50 ML VIAL 30 ML INFILTRATE (12:22)
--- NOTE | 2023-06-30 13:41 | PM.OP ---
Procedure Note - Brief Procedure Note - Brief Date of procedure: 06/30/23 right lumbar radiculopathy, rt, foot drop, Post-op diagnosis: Same Procedure performed: Revision L4-5 laminectomy, partial L5 laminotomy, foraminotomy, resection of synovial cyst Surgeon: Batool Tenorio MD Anesthesia: GETA Findings: Wide decompression of dura, lateral recess, and traversing nerve root Estimated blood loss (mL): 10 Drains: No Packing: No Pathology: None sent Complications: None Condition: Stable Disposition: PACU
--- NOTE | 2023-06-30 14:13 | P.OP_ITS ---
Procedure Note - Detailed Date of Procedure 06/30/23 Pre-op Diagnosis right lumbar radiculopathy, rt, foot drop, Post-op Diagnosis Same Procedure Performed 1. Revision L4-5 laminectomy and foraminotomy 2. Resection of synovial cyst 3. Use of microscope for microsurgical dissection 4. Use of C-arm for fluoroscopy Surgeon Batool Tenorio MD Warehouse Assistant Kathy Faye General Indications Ms. Serna is a 68-year-old female who underwent L2, L3, and L4 laminectomies in June 2022 for treatment of neurogenic claudication who developed recurrent right leg pain and eventually a right foot drop that eventually became unresponsive to conservative treatments. MRI showed a right synovial cyst at L4- 5 causing lateral recess stenosis. Surgery in the form of revision laminectomy for synovial cyst resection was recommended. Risks including bleeding, pain, infection, CSF leak, need for further surgery, weakness, paresthesias, and anesthetic complications were discussed. The patient provided written informed consent to proceed. Description of Procedure The patient was brought to the operating room where general anesthesia was induced. The patient was turned prone onto the Brayan frame. All pressure points were padded. The previous incision was marked. C-arm helped to localize the L4-5 level. The surgical site was prepped and draped in usual sterile fashion. Time out was performed. Local anesthetic was injected into the planned incision. The inferior portion of the previous incision was re-opened and extended inferiorly. The soft tissues were dissected to the previous surgical site, also exposing the L5 laminae bilaterally. The laminectomy defect was gradually exposed with blunt dissection, taking care to expose the edges of the remaining laminae. The superior portion of the L5 laminae were removed in order to expose clean tissue planes to help in the dissection of the superior level. Eventually, the dura was from the overlying remaining ligamentum and bone. Further lamina was removed on both sides to allow for a wider central decompression. Scar tissue that was adherent to the dura was left in place. The right lateral recess was carefully dissected free, with excess bone removed with the kerrison. Remaining ligamentum was removed as well. A small synovial cyst was removed from the L4-5 facet. The kerrison was passed into the foramen to decompress the nerve root. A Woodsen was able to be passed through the foramen without difficulty. Hemostasis was ensured with Surgiflo, cottonoids, and the bipolar. The surgical site was copiously irrigated. A small area of thinned dura was noted on the left side at the superior aspect of the exposure. There was no CSF leak, but as this was very thin, a small piece of Duragen was placed over the dura for reinforcement. The muscle was approximated with 0 vicryl. The fascia was closed with 0-vicryl in interrupted fashion. The dermis was closed with 2-0 and 3-0 vicryl. The skin was closed with 4-0 monocryl in subcuticular fashion. Dermabond was placed on the incision. The patient was returned to the supine position, extubated, and transferred to PACU without incident. Billing codes: 40914, 76409 Implants 1x1 inch piece of Duragen Estimated Blood Loss 10 Drains No Packing No Pathology None sent Complications None Condition Stable Disposition PACU [facility] Billing Surgery - Charge Forward: Surgery Billing
--- NOTE | 2023-06-30 14:56 | SUR.PHASEI ---
RN tried to call report to floor RN. He has to call back.
[2023-06-30] MEDS: ACETAMINOPHEN 500 MG TABLET 1000 MG PO ×2 (16:11→20:44)
[2023-06-30] MEDS: GABAPENTIN 300 MG CAPSULE 600 MG PO (16:11)
[2023-06-30] MEDS: ALPRAZolam (*CRX) 0.25 MG TABLET PO (16:14)
[2023-06-30] MEDS: oxyCODONE HCL (*CRX) 5 MG TAB IR PO (16:14)
--- NOTE | 2023-06-30 16:29 | PC.NURSE ---
Returned from OR per [ Stretcher] at 1330. Report received from [Jeri ].
[2023-06-30] MEDS: SODIUM CHLORIDE 0.9% IV 1,000 ML 100 ML IV CONT (16:34)
[2023-06-30] MEDS: ceFAZolin 1 GM/NS 50 ML 1 GM/50 ML BAG IVPB (17:37)
[2023-06-30] MEDS: carvediloL 25 MG TABLET PO (17:38)
[2023-06-30] MEDS: ARIPiprazole 5 MG TABLET PO (20:44)
[2023-06-30] MEDS: DOCUSATE SODIUM 100 MG CAPSULE PO (20:44)
[2023-06-30] MEDS: oxyCODONE HCL (*CRX) 5 MG TAB IR 10 MG PO (23:11)
[2023-07-01] VITALS (8 sets, daily range): BP systolic 125–168; BP diastolic 66–80; PULSE 77–95; RESP 16–18; TEMP 36.2–36.7; O2SAT 93–98
[2023-07-01] MEDS: ceFAZolin 1 GM/NS 50 ML 1 GM/50 ML BAG IVPB ×2 (03:44→10:34)
[2023-07-01] MEDS: SODIUM CHLORIDE 0.9% IV 1,000 ML 100 ML IV CONT (03:44)
[2023-07-01] MEDS: ACETAMINOPHEN 500 MG TABLET 1000 MG PO ×3 (03:45→17:06)
[2023-07-01] MEDS: carvediloL 25 MG TABLET PO (05:02)
[2023-07-01] MEDS: oxyCODONE HCL (*CRX) 5 MG TAB IR 10 MG PO (05:03)
--- NOTE | 2023-07-01 07:58 | WPDANESPN ---
Anes - Prog Note Post-Op Date/Time: 07/01/23 07:58 Cardiovascular status: normal Respiratory status: normal Airway patency: baseline Mental status: baseline Post-Op hydration status: normal Vital Signs: Last Vital Signs Temp 36.6 C 07/01/23 04:45 Pulse 92 07/01/23 05:02 Resp 18 07/01/23 04:45 BP 162/75 H 07/01/23 04:45 Pulse Ox 93 07/01/23 04:45 O2 Del Method Nasal Cannula 07/01/23 03:14 O2 Flow Rate 1 07/01/23 03:14 Pain Score (VAS): 05/01 I/O: Intake & Output 06/30/23 06/30/23 07/01/23 15:59 23:59 07:59 Intake Total 601 813 8848 Balance 831 790 9302 Post-procedural complaints: none Patient Feedback: Patient satisfied with anesthetic care.
--- NOTE | 2023-07-01 08:30 | PC.NURSE ---
Pt states she has been using a bedpan since her procedure and had yet to get out of bed. MD notified. states no need for PT/OT orders and states the patient can get up with staff assistance. also states IV fluids can be DC'd at this time if patient is PO intake is okay.
[2023-07-01] MEDS: buPROPion HCL XL (24 HR) 150 MG TABCR 300 MG PO (08:33)
[2023-07-01] MEDS: DOCUSATE SODIUM 100 MG CAPSULE PO (08:33)
[2023-07-01] MEDS: GABAPENTIN 300 MG CAPSULE 600 MG PO ×2 (08:33→12:37)
[2023-07-01] MEDS: lisinopriL 20 MG TABLET 40 MG PO (08:33)
[2023-07-01] MEDS: ATORVASTATIN 20 MG TABLET PO (08:34)
[2023-07-01] MEDS: amLODIPine BESYLATE 5 MG TABLET 10 MG PO (08:34)
--- NOTE | 2023-07-01 08:40 | PC.NURSE ---
This RN assisted patient to transfer to chair. patient tolerated movement well and is sitting in the chair at this time. Pt educated on fall precautions and encouraged to call before getting out of chair or when in need of help. patient agreeable
--- NOTE | 2023-07-01 14:14 | PCCCNOTE ---
On 07/01/23, the student, [Geraldine Sweeney], provided care and completed [facility] documentation on this patient. I have reviewed the student's documentation and agree with the findings.
[2023-07-01] MEDS: oxyCODONE HCL (*CRX) 5 MG TAB IR PO (14:18)
--- NOTE | 2023-07-01 17:43 | WPDNEUROSGPN ---
Progress Note: A&P Assessment and Plan (1) Right foot drop: Code(s): M21.371 - Foot drop, right foot Status: Acute (2) Status post lumbar laminectomy: Code(s): Z98.890 - Other specified postprocedural states Status: Acute Plan -Discharge home this evening -Follow up with me in clinic in 2 weeks Subjective Date/time seen: 07/01/23 17:43 Interval history: Doing very well with limited lower back pain and resolved right leg pain. She has some numbness in the foot which is unchanged. She has been ambulating without difficulty. She thinks she is walking better, and her states she is standing up straighter when walking. She also thinks she is moving her foot better compared to before surgery. Review of Systems Review of Systems: All systems reviewed & are unremarkable except as noted in HPI and below Exam Narrative: AOX4 Incision c/d/i Full strength in lower extremities with exception of right dorsiflexion 2/5, EHL 2/5 Slight decreased sensation to light touch in top of right foot Objective Data Vital Signs Vital Signs: Vital Signs - 24 hr 06/30/23 20:45 07/01/23 00:45 07/01/23 03:14 Temperature 98.6 F 98.0 F Pulse Rate 94 95 Respiratory Rate 18 16 Blood Pressure 145/67 H 125/80 Pulse Oximetry 97 98 97 Oxygen Delivery Nasal Cannula Oxygen Flow Rate 1 07/01/23 05:02 07/01/23 04:45 07/01/23 08:00 Temperature 97.9 F 97.2 F L Pulse Rate 92 92 92 Respiratory Rate 18 16 Blood Pressure 162/75 H 167/76 H Pulse Oximetry 93 94 Oxygen Delivery Oxygen Flow Rate 07/01/23 08:35 07/01/23 12:00 07/01/23 16:00 Temperature 97.8 F 97.4 F L Pulse Rate 81 77 Respiratory Rate 16 18 Blood Pressure 168/69 H 154/66 H Pulse Oximetry 93 98 96 Oxygen Delivery Room Air Oxygen Flow Rate Intake/Output Intake/Output: Intake & Output 06/28/23 06/29/23 06/30/23 07/01/23 23:59 23:59 23:59 23:59 Intake Total 980 1458 Balance 980 1458 Meds/Results Medications: Active Medications Generic Name Dose Route Start Last Admin Trade Name Freq PRN Reason Stop Dose Admin Acetaminophen 1,000 mg 06/30/23 16:00 07/01/23 17:06 Acetaminophen 500 Mg Tablet PO 1,000 mg Q6H DAVID Administration Al Hydrox/Mg Hydrox/Simethicone 20 ml 06/30/23 13:44 Mag Hydrox/Al Hydrox/Simeth 30 Ml Udc PO Q4H PRN Indigestion/Heartburn Alprazolam 0.25 mg 06/30/23 17:00 07/01/23 08:35 Alprazolam (*Crx) 0.25 Mg Tablet PO Not Given BID DAVID Amlodipine Besylate 10 mg 07/01/23 09:00 07/01/23 08:34 Amlodipine Besylate 5 Mg Tablet PO 10 mg QAM DAVID Administration Aripiprazole 5 mg 06/30/23 21:00 06/30/23 20:44 Aripiprazole 5 Mg Tablet PO 5 mg HS DAVID Administration Atorvastatin Calcium 20 mg 07/01/23 09:00 07/01/23 08:34 Atorvastatin 20 Mg Tablet PO 20 mg DAILY DAVID Administration Bisacodyl 10 mg 06/30/23 13:44 Bisacodyl 10 Mg Suppository RECTAL DAILY PRN Constipation Bupropion HCl 300 mg 07/01/23 09:00 07/01/23 08:33 Bupropion Hcl Xl (24 Hr) 150 Mg Tabcr PO 300 mg QAM DAVID Administration Carvedilol 25 mg 06/30/23 18:00 07/01/23 05:02 Carvedilol 25 Mg Tablet PO 25 mg Q12H DAVID Administration Cyclobenzaprine HCl 10 mg 06/30/23 13:46 Cyclobenzaprine Hcl 10 Mg Tablet PO TID PRN Muscle Spasms Docusate Sodium 100 mg 06/30/23 21:00 07/01/23 08:33 Docusate Sodium 100 Mg Capsule PO 100 mg Q12HR DAVID Administration Gabapentin 600 mg 06/30/23 17:00 07/01/23 12:37 Gabapentin 300 Mg Capsule PO 600 mg TID DAVID Administration Cefazolin Sodium 1 gm in 50 mls @ 100 mls/hr 06/30/23 19:00 07/01/23 11:04 Ancef 1 Gm/Ns 50 Ml IVPB 07/01/23 19:15 Infused Q8H [facility] Infusion Lisinopril 40 mg 07/01/23 09:00 07/01/23 08:33 Lisinopril 20 Mg Tablet PO 40 mg QAM DAVID Administration Ondansetron HCl 4 mg 06/30/23 13:44 Ondansetron Inj 4 Mg
== END 2023-07-01 18:05 | disposition home or self-care (01) ==
LOC: ANHSURGERY 08:43 → ANH3MEDSUR 15:08
PROVIDERS: PCP Internal Medicine; Visit Provider Neurological Surgery
PROC: (CPT 63005; principal; 2023-06-30 11:00)
DX: M21.371 Foot drop, right foot (principal); M71.38 Other bursal cyst, other site; I10 Essential (primary) hypertension; E78.5 Hyperlipidemia, unspecified; F41.9 Anxiety disorder, unspecified; F12.90 Cannabis use, unspecified, uncomplicated; Z98.890 Other specified postprocedural states; Z98.1 Arthrodesis status; Z87.891 Personal history of nicotine dependence; Z82.49 Family history of ischemic heart disease and other diseases of the circulatory system
CPT/HCPCS: 63267; 36415; 80048; 81001; 85027; 85610; 85730; 99199; A9270; J0330; J0690; J1100; J1165; J1170; J2405; J2704; J3010; J7030; J7120